=== PATIENT | male | born 1995 | race African-American/Black ===

== ENCOUNTER 2016-11-08 03:03 | Emergency (ER) | payer SELFPAY ==
[2016-11-08 03:16] LABS: BASOPHIL 0.3 % (0-2); EOSINOPHIL 1.2 % (0-5); HCT 41.4 % (42.0-52.0); HGB 14.2 g/dl (13.2-18.0); LYMPHOCYTE 35.6 % (15-48); MCH 29.5 pg (25.0-31.0); MCHC 34.3 g/dL (32.0-36.0); MCV 86.1 fL (78.0-100.0); MONOCYTE 5.1 % (0-12); NEUTROPHIL 57.8 % (41-80); PLT 201 K/uL (150-400); RBC 4.81 M/uL (4.70-6.00); WBC 6.5 K/uL (4.0-10.5)
[2016-11-08 03:36] LABS: ACETAMINOPHEN (TYLENOL) < 5.0 ug/mL (10.0-30.0); ALBUMIN 4.6 g/dL (3.5-5.0); ALCOHOL (ETOH) MEDICAL 148 mg/dL; BILIRUBIN - TOTAL 0.3 mg/dL (0.1-1.0); CREATININE 1.1 mg/dL (0.7-1.2); GLOBULIN (CALCULATION) 2.6 g/dL (2.2-4.2); POTASSIUM 3.9 mmol/L (3.5-5.1); SALICYLATE < 6 ug/mL (0-300); TOTAL PROTEIN 7.2 g/dL (6.4-8.3)
== END 2016-11-08 03:36 | disposition left against medical advice (07) ==
LOC: FER 03:03
PROVIDERS: Emergency Medicine
DX: F19.10 Other psychoactive substance abuse, uncomplicated (principal); S01.01XA Laceration without foreign body of scalp, initial encounter; F17.200 Nicotine dependence, unspecified, uncomplicated; Z72.89 Other problems related to lifestyle
CPT/HCPCS: 36415; 70450; 80053; 85025; G0480